=== PATIENT | female | born 1945 | race Caucasian/White ===

== ENCOUNTER 2017-12-02 19:28 | Emergency (ER) | payer OTHER ==
[2017-12-02 19:58] LABS: ABSOLUTE NEUTROPHILS 7.2 thou/uL (1.4-8.2); BASOPHILS 0.7 % (0.0-2.0); EOSINOPHILS 0.2 % (0.0-3.0); HEMOGLOBIN 13.3 gm/dL (12.0-15.0); MCH 31.3 pg (26.0-34.0); MCV 92.1 fL (80.0-100.0); MONOCYTES 8.4 % (1.0-8.0); PLATELET COUNT 196 thou/uL (150-400); POLYS 79.7 % (36.0-66.0); RBC 4.23 mil/uL (4.20-5.00); RDW 13.3 % (10.5-14.5)
[2017-12-02 20:05] LABS: CALCIUM 9.2 mg/dL (8.5-10.1); CREATININE 0.9 mg/dL (0.6-1.0); POTASSIUM 3.8 mmol/L (3.5-5.1)
[2017-12-02 20:11] LABS: ALBUMIN 3.6 g/dL (3.4-5.0); DIRECT BILIRUBIN 0.1 mg/dL (<0.1-0.3); TOTAL BILIRUBIN 0.4 mg/dL (<0.1-1.0); TOTAL PROTEIN 7.3 g/dL (6.4-8.2)
[2017-12-02] MEDS ORDERED: TESSALON PERLE100 MG PO (20:51)
[2017-12-02 21:31] VITALS: BP 146/89
== END 2017-12-02 21:35 | disposition home or self-care (01) ==
LOC: ER 19:28
PROVIDERS: Nurse Practitioner
DX: J06.9 Acute upper respiratory infection, unspecified (principal); Z88.2 Allergy status to sulfonamides

== ENCOUNTER 2018-03-04 14:47 | Emergency (ER) | payer OTHER ==
[~2018-03-04] VITALS: Ht 165.1 cm; Wt 49.9 kg
--- NOTE | ~2018-03-04 | EKG ---
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
[~2018-03-04 14:47] MED LIST: TESSALON PERLE100 MG PO
[2018-03-04 15:54] LABS: ABSOLUTE NEUTROPHILS 3.3 thou/uL (1.4-8.2); BASOPHILS 1.2 % (0.0-2.0); EOSINOPHILS 0.8 % (0.0-3.0); HEMATOCRIT 36.3 % (37.0-47.0); HEMOGLOBIN 12.5 gm/dL (12.0-15.0); LYMPHOCYTES 24.7 % (24.0-44.0); MCH 31.8 pg (26.0-34.0); MCHC 34.3 g/dL (28.0-37.0); MCV 92.7 fL (80.0-100.0); MONOCYTES 8.3 % (1.0-8.0); PLATELET COUNT 223 thou/uL (150-400); RBC 3.92 mil/uL (4.20-5.00); RDW 13.6 % (10.5-14.5); WBC 5.1 thou/uL (4.0-11.0)
[2018-03-04 16:10] LABS: ANION GAP 6 mmol/L (7-16); BUN 21 mg/dL (7-18); CALCIUM 9.4 mg/dL (8.5-10.1); CHLORIDE 96 mmol/L (98-107); CO2 28 mmol/L (21-32); CREATININE 1.1 mg/dL (0.6-1.0); GLUCOSE 97 mg/dL (74-106); POTASSIUM 4.3 mmol/L (3.5-5.1); SODIUM 130 mmol/L (136-145)
[2018-03-04 16:13] LABS: TROPONIN-I <0.06 ng/mL (<0.06)
[2018-03-04] MEDS ORDERED: LISINOPRIL5 MG PO (16:42)
[2018-03-04 16:51] VITALS: BP 146/86
== END 2018-03-04 17:01 | disposition home or self-care (01) ==
LOC: ER 14:47
PROVIDERS: Emergency Medicine
DX: R42 Dizziness and giddiness (principal); R53.1 Weakness; R25.1 Tremor, unspecified; Z88.2 Allergy status to sulfonamides

== ENCOUNTER 2018-11-14 17:58 | Emergency (ER) | payer OTHER ==
[~2018-11-14] VITALS: Ht 162.6 cm; Wt 45.4 kg
[~2018-11-14 17:58] MED LIST changes: +LISINOPRIL5 MG PO
[2018-11-14] MEDS ORDERED: LISINOPRIL10 MG PO (19:15)
[2018-11-14 19:49] VITALS: BP 159/103
== END 2018-11-14 19:48 | disposition home or self-care (01) ==
LOC: ER 17:58
DX: I10 Essential (primary) hypertension (principal); Z76.0 Encounter for issue of repeat prescription; Z88.2 Allergy status to sulfonamides

== ENCOUNTER 2019-01-29 11:39 | Emergency (ER) | payer OTHER ==
[~2019-01-29] VITALS: Ht 167.6 cm; Wt 49.9 kg
[~2019-01-29 11:39] MED LIST changes: +LISINOPRIL10 MG PO
[2019-01-29] MEDS ORDERED: WELLBUTRIN XL300 MG PO (11:51)
[2019-01-29 12:41] LABS: BASOPHILS 1.2 % (0.0-2.0); EOSINOPHILS 1.8 % (0.0-3.0); HEMATOCRIT 39.3 % (37.0-47.0); HEMOGLOBIN 13.5 gm/dL (12.0-15.0); LYMPHOCYTES 12.4 % (24.0-44.0); MCHC 34.4 g/dL (28.0-37.0); MCV 92.9 fL (80.0-100.0); MONOCYTES 7.7 % (1.0-8.0); PLATELET COUNT 190 thou/uL (150-400); POLYS 76.9 % (36.0-66.0); RBC 4.22 mil/uL (4.20-5.00); RDW 13.5 % (10.5-14.5); WBC 5.3 thou/uL (4.0-11.0)
[2019-01-29 12:59] LABS: URINE BILIRUBIN NEGATIVE (Negative); URINE BLOOD NEGATIVE (Negative); URINE CLARITY CLEAR; URINE COLOR YELLOW; URINE GLUCOSE-RANDOM* NEGATIVE (Negative); URINE KETONES NEGATIVE (Negative); URINE LEUKOCYTES-REFLEX NEGATIVE (Negative); URINE NITRITE-REFLEX NEGATIVE (Negative); URINE PROTEIN (DIPSTICK) NEGATIVE (Negative); URINE SPECIFIC GRAVITY 1.015 (1.005-1.035); URINE UROBILINOGEN 0.2 E.U./dl (0.2-1.0)
[2019-01-29 13:01] LABS: CALCIUM 9.2 mg/dL (8.5-10.1); CREATININE 0.9 mg/dL (0.6-1.0)
[2019-01-29 13:06] LABS: AMP/METHAMP Negative (Negative); BARBITURATES Negative (Negative); BENZODIAZEPINES POSITIVE (Negative); COCAINE Negative (Negative); METHADONE Negative (Negative); OPIATES Negative (Negative); PCP Negative (Negative)
[2019-01-29 13:09] LABS: ALBUMIN 3.6 g/dL (3.4-5.0); DIRECT BILIRUBIN 0.1 mg/dL (<0.1-0.3); TOTAL BILIRUBIN 0.5 mg/dL (<0.1-1.0); TOTAL PROTEIN 6.6 g/dL (6.4-8.2)
[2019-01-29 13:16] LABS: POTASSIUM 3.9 mmol/L (3.5-5.1)
[2019-01-29] MEDS ORDERED: IBUPROFEN 600600 M1 PO (14:02)
[2019-01-29] MEDS ORDERED: LISINOPRIL10 MG PO (14:02)
[2019-01-29 14:21] VITALS: BP 141/81
== END 2019-01-29 14:27 | disposition home or self-care (01) ==
LOC: ER 11:39
PROVIDERS: Emergency Medicine
DX: S01.01XA Laceration without foreign body of scalp, initial encounter (principal); I10 Essential (primary) hypertension; Z88.2 Allergy status to sulfonamides; W07.XXXA Fall from chair, initial encounter; Y93.89 Activity, other specified; Y92.89 Other specified places as the place of occurrence of the external cause; Y99.8 Other external cause status; Z79.899 Other long term (current) drug therapy

== ENCOUNTER 2019-02-15 14:31 | Emergency (ER) | payer OTHER ==
[~2019-02-15] VITALS: Ht 165.1 cm; Wt 47.6 kg
[~2019-02-15 14:31] MED LIST changes: +IBUPROFEN 600600 M1 PO; +WELLBUTRIN XL300 MG PO
[2019-02-15 14:36] VITALS: BP 130/88
== END 2019-02-15 15:52 | disposition home or self-care (01) ==
LOC: ER 14:31
DX: S01.81XD Laceration without foreign body of other part of head, subsequent encounter (principal); I10 Essential (primary) hypertension; Z88.2 Allergy status to sulfonamides; W07.XXXD Fall from chair, subsequent encounter

== ENCOUNTER 2019-04-08 21:45 | Inpatient (IN) | payer OTHER ==
[~2019-04-08] VITALS: Ht 165.1 cm; Wt 49.9 kg
[2019-04-08 21:48] VITALS: BP 169/100
[2019-04-09 00:01] LABS: ABSOLUTE NEUTROPHILS 7.9 thou/uL (1.4-8.2); BASOPHILS 0.3 % (0.0-2.0); EOSINOPHILS 0.1 % (0.0-3.0); HEMATOCRIT 37.7 % (37.0-47.0); HEMOGLOBIN 12.9 gm/dL (12.0-15.0); LYMPHOCYTES 3.7 % (24.0-44.0); MCH 31.5 pg (26.0-34.0); MCHC 34.1 g/dL (28.0-37.0); MCV 92.4 fL (80.0-100.0); PLATELET COUNT 171 thou/uL (150-400); POLYS 94.9 % (36.0-66.0); RBC 4.08 mil/uL (4.20-5.00); RDW 13.2 % (10.5-14.5); WBC 8.3 thou/uL (4.0-11.0)
[2019-04-09 00:06] LABS: ANION GAP 8 mmol/L (7-16); BUN 23 mg/dL (7-18); CALCIUM 8.8 mg/dL (8.5-10.1); CHLORIDE 95 mmol/L (98-107); CO2 27 mmol/L (21-32); GLUCOSE 142 mg/dL (74-106); POTASSIUM 4.1 mmol/L (3.5-5.1); SODIUM 130 mmol/L (136-145)
[2019-04-09 00:27] LABS: MAGNESIUM 1.8 mg/dL (1.8-2.4); TROPONIN-I <0.06 ng/mL (<0.06)
[2019-04-09 01:01] LABS: URINE BILIRUBIN NEGATIVE (Negative); URINE BLOOD NEGATIVE (Negative); URINE CLARITY CLEAR; URINE COLOR YELLOW; URINE GLUCOSE-RANDOM* NEGATIVE (Negative); URINE KETONES NEGATIVE (Negative); URINE LEUKOCYTES-REFLEX NEGATIVE (Negative); URINE NITRITE-REFLEX NEGATIVE (Negative); URINE PROTEIN (DIPSTICK) NEGATIVE (Negative); URINE UROBILINOGEN 0.2 E.U./dl (0.2-1.0)
[2019-04-09] MEDS ORDERED: VALIUM5 MG PO (01:24)
[2019-04-09 08:23] VITALS: BP 110/65
[2019-04-09 08:27] LABS: CALCIUM 8.4 mg/dL (8.5-10.1); CREATININE 0.9 mg/dL (0.6-1.0); POTASSIUM 4.2 mmol/L (3.5-5.1)
[2019-04-09 08:38] VITALS: BP 115/67
[2019-04-09 08:53] VITALS: BP 106/54
--- NOTE | 2019-04-09 10:57 | EKG ---
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
--- NOTE | 2019-04-09 10:58 | EKG ---
[place] [address] 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1945 Requested By: Ovidio Noe Order Number: [id number] MD: Atul Hale Measurements Intervals [place] Rate: 99 P: 76 NE: 172 QRS: 87 QRSD: 101 T: -2 QT: 364 QTc: 468 Interpretive Statements Sinus rhythm Biatrial enlargement Borderline right axis deviation Borderline T wave abnormalities Baseline wander in lead(s) V6 Compared to ECG 03/04/2018 15:15:48 Atrial abnormality now present T-wave abnormality now present Electronically Signed On 04-09-2019 10:57:47 CDT by Atul Hale [email or web address] <ELECTRONICALLY SIGNED> By: Atul Hale MD 04/09/19 1057 0035 0035 Atul Hale MD /[facility]
[2019-04-09 11:30] LABS: TSH 1.062 uIU/mL (0.358-3.740)
[2019-04-09 12:17] VITALS: BP 108/61
[2019-04-09 15:08] VITALS: BP 101/64
--- NOTE | 2019-04-09 19:07 | NUR ---
PATIENT ADMITTED TO ROOM THIS AM. SHE IS PLEASANT BUT QUITE FORGETFUL. SHE KEEPS ASKING THE SAME QUESTION OVER AND OVER. SHE IS ORIENTED TO DAY AND TIME. WILL CONT WITH PLAN OF CARE.
[2019-04-09 20:05] VITALS: BP 107/64
[2019-04-10 06:17] VITALS: BP 112/75
--- NOTE | 2019-04-10 06:17 | NUR ---
calls approp for assist out of bed. c/o headache this am. tylenol allowed her to rest. careplan reviewed. she is wanting to go home today. stated that she is feeling just fine. continues on iv fluids. no discharge concerns voiced.
[2019-04-10 07:09] VITALS: BP 113/66
[2019-04-10 10:06] LABS: HEMATOCRIT 35.9 % (37.0-47.0); HEMOGLOBIN 12.1 gm/dL (12.0-15.0); MCH 31.4 pg (26.0-34.0); MCHC 33.6 g/dL (28.0-37.0); MCV 93.3 fL (80.0-100.0); RBC 3.84 mil/uL (4.20-5.00); RDW 13.6 % (10.5-14.5)
--- NOTE | 2019-04-10 10:07 | NUR ---
PT PULLED OUT IV AT SHIFT CHANGE.PHYSICIAN GAVE ORDER FOR OK TO D/C FLUIDS AND TO RESTART AN IV AND SALINE LOCK IT. PT REFUSED NEW IV.
[2019-04-10 10:17] LABS: CREATININE 0.9 mg/dL (0.6-1.0); MAGNESIUM 1.8 mg/dL (1.8-2.4)
--- NOTE | 2019-04-10 12:06 | NUR ---
PT APPEARS TO HAVE SHORT TERM MEMORY PROBLEMS. NOTIFIED NEUROLOGIST ABOUT PT REPEATING THE SAME CONVERSATIONS. PT VERY UPSET ABOUT BEING IN HOSPITAL AND NOT BEING D/C HOME TODAY. ONCE RN STATES THAT AN MRI IS TO BE DONE TOMORROW,PT QUESTIONS WHY SHE CAN'T GO HOME TODAY AND COME BACK TOMORROW. A FEW MINUTES LATER PT CALLS NURSE BACK INTO ROOM AND HAS SAME CONVERSATION IF WE DID NOT JUST SPEAK OF THIS. MICHELLE CONTINUE TO CLOSELY MONITOR PT.
[2019-04-10 15:01] VITALS: BP 128/66
[2019-04-10 20:30] VITALS: BP 119/75
--- NOTE | 2019-04-11 03:40 | NUR ---
pt has rested well tonight. frequent turns and oral care completed. denies pain. careplan reviewed. progresslng slowly toward discharge goals. he has had one large bm this shift.
[2019-04-11 04:45] VITALS: BP 125/69
[2019-04-11 05:48] LABS: HEMATOCRIT 39.3 % (37.0-47.0); HEMOGLOBIN 13.1 gm/dL (12.0-15.0); MCH 31.1 pg (26.0-34.0); MCHC 33.2 g/dL (28.0-37.0); MCV 93.6 fL (80.0-100.0); RBC 4.2 mil/uL (4.20-5.00); RDW 13.4 % (10.5-14.5); WBC 5.8 thou/uL (4.0-11.0)
[2019-04-11 05:59] LABS: CALCIUM 9.1 mg/dL (8.5-10.1); CREATININE 0.8 mg/dL (0.6-1.0); MAGNESIUM 1.9 mg/dL (1.8-2.4)
--- NOTE | 2019-04-11 06:48 | NUR ---
continues to be confused and asking the same question with each interaction. she is genuinely surprised, with the reason for her admission to the hospital. she wants to go home. reassured her and explained the plan for today many times. she can be redirected easily. progressing toward discharge goals.
[2019-04-11 07:27] VITALS: BP 119/75
--- NOTE | 2019-04-11 10:14 | NUR ---
ASSESSMENT: CM REVIEWED CHART AND MET WITH PATIENT AT THE BEDSIDE. PT REPORTS THAT SHE LIVES IN A [place] ALONE. PT WAS ADMITTED FOR SEIZURE/WEAKNESS. PT REPORTS THAT SHE HAS ABOUT 7 STEPS WITH HANDRAILS TO ENTER THE [place] AND HAS ABOUT 15 STEPS WITH [facility]ANDR[facility]S TO HER BEDROOM. PT REPORTS BEING FULLY INDEPENDENT WITH ADLS AND AMBULATION. PT REPORTS SHE HAS NOT HAD HH IN THE PAST OR BEEN TO A SNF. PT IS VERY ADMIATE ABOUT GOING HOME. PTS GALDINO SANTANA IS VERY CONCERNED ABOUT HER GOING HOME DUE TO HER CONFUSION AT TIMES. SHE STATES SHE HAS FRIENDS THAT LIVE AT THE [place] THAT CHECK IN ON HER BUT SHE IS CONCERNED ABOUT HER BEING ALONE. PT STATING SHE IS FINE AND WANTS TO GO HOME. PSYCH HAS BEEN CONSULTED AND WAITING ON THEIR OPINION FOR PATIENTS CAPACITY TO MAKE HER OWN DECISONS AT THIS TIME. CM DISCUSSED THIS WHAT THE NIECE. CM WILL CONTINUE TO FOLLOW TO ASSIST NEEDED.
--- NOTE | 2019-04-11 13:41 | NUR ---
Nutrition: Pt assessed d/t high risk, BMI < 18.5 (18.3 at present). Here for new onset seizure, hypokalemia, weakness. Hx HTN. On a regular diet, eating 100% of dinners the last 2 nights; but no other meals yet recorded. Discussed underweight status. Pt got defensive and stated "I'm not anorexic if that's what you mean." States UBW of 115-120#, but recent virus a weeks back so possible 5-10# loss? EMR shows pt reported her weight at 110# back in 02/2018, 01/2019, and CBW 110#. EMR states increased confusion over the past year. Pt states she is very busy, always on the go. Discussed easy, energy dense kcals and snacks to carry. Pt very short with RD, stating "I need to talk to the RN, I'm trying to get out of here." Reports appetite is fine, will continue being fine after discharge too. Any nutrition interventions declined. Low risk.
[2019-04-11 16:35] VITALS: BP 119/75
== END 2019-04-11 17:47 | disposition home or self-care (01) | DRG 100 ==
LOC: ER 21:45 → 3W 04-09 02:39 → EROBS 04-09 02:39 → 3W 04-09 08:50
PROVIDERS: Emergency Medicine; Nurse Practitioner Acute Care; Psychiatry & Neurology Neurology; ADMIT Internal Medicine
PROC: 4A00X4Z Measurement of Central Nervous Electrical Activity, External Approach (ICD-10-PCS; principal; 2019-04-09)
DX: R56.9 Unspecified convulsions (principal); G92 Toxic encephalopathy; E87.1 Hypo-osmolality and hyponatremia; F03.90 Unspecified dementia, unspecified severity, without behavioral disturbance, psychotic disturbance, mood disturbance, and anxiety; F32.9 Major depressive disorder, single episode, unspecified; I10 Essential (primary) hypertension; Z85.3 Personal history of malignant neoplasm of breast; Z90.12 Acquired absence of left breast and nipple; Z88.2 Allergy status to sulfonamides; Z82.0 Family history of epilepsy and other diseases of the nervous system
CPT/HCPCS: 10879

== ENCOUNTER 2019-04-30 17:28 | Emergency (ER) | payer OTHER ==
[~2019-04-30] VITALS: Ht 165.1 cm; Wt 49.9 kg
[~2019-04-30 17:28] MED LIST changes: +VALIUM5 MG PO
[2019-04-30 19:02] VITALS: BP 154/92
== END 2019-04-30 19:02 | disposition home or self-care (01) ==
LOC: ER 17:28
DX: S01.81XA Laceration without foreign body of other part of head, initial encounter (principal); I10 Essential (primary) hypertension; Z85.3 Personal history of malignant neoplasm of breast; Z90.12 Acquired absence of left breast and nipple; Z98.890 Other specified postprocedural states; Z88.2 Allergy status to sulfonamides; W18.39XA Other fall on same level, initial encounter; Y93.89 Activity, other specified; Y92.481 Parking lot as the place of occurrence of the external cause; Y99.8 Other external cause status

== ENCOUNTER → 2021-02-13 | Outpatient (CLI) | payer OTHER ==
[~2021-02-13] MED LIST changes: +GENTAMICIN TOP; +NEURONTIN100 MG PO; +ROXICODONE5 M2 PO; +VALIUM10 MG PO
== END ==
LOC: HYPER 08:03
PROVIDERS: ATTEND Emergency Medicine
DX: S91.032D Puncture wound without foreign body, left ankle, subsequent encounter (principal); L97.322 Non-pressure chronic ulcer of left ankle with fat layer exposed; L84 Corns and callosities; G62.9 Polyneuropathy, unspecified; M21.612 Bunion of left foot; I10 Essential (primary) hypertension; M19.071 Primary osteoarthritis, right ankle and foot; M19.072 Primary osteoarthritis, left ankle and foot; Z90.10 Acquired absence of unspecified breast and nipple; Z79.899 Other long term (current) drug therapy; X58.XXXD Exposure to other specified factors, subsequent encounter

== ENCOUNTER → 2021-02-20 | Outpatient (CLI) | payer OTHER | LOC: HYPER 09:24 | PROVIDERS: ATTEND Emergency Medicine | DX: S91.032D Puncture wound without foreign body, left ankle, subsequent encounter (principal); L97.322 Non-pressure chronic ulcer of left ankle with fat layer exposed; L84 Corns and callosities; G62.9 Polyneuropathy, unspecified; M21.612 Bunion of left foot; I10 Essential (primary) hypertension; M19.071 Primary osteoarthritis, right ankle and foot; M19.072 Primary osteoarthritis, left ankle and foot; Z90.10 Acquired absence of unspecified breast and nipple; X58.XXXD Exposure to other specified factors, subsequent encounter ==

== ENCOUNTER → 2021-02-28 | Outpatient (CLI) | payer OTHER | LOC: HYPER 09:41 | PROVIDERS: ATTEND Emergency Medicine | DX: S91.032D Puncture wound without foreign body, left ankle, subsequent encounter (principal); L97.322 Non-pressure chronic ulcer of left ankle with fat layer exposed; G62.9 Polyneuropathy, unspecified; M21.612 Bunion of left foot; I10 Essential (primary) hypertension; M19.071 Primary osteoarthritis, right ankle and foot; M19.072 Primary osteoarthritis, left ankle and foot; Z90.10 Acquired absence of unspecified breast and nipple; Z79.899 Other long term (current) drug therapy; X58.XXXD Exposure to other specified factors, subsequent encounter ==

== ENCOUNTER → 2021-03-21 | Outpatient (CLI) | payer OTHER | LOC: HYPER 08:25 | PROVIDERS: ATTEND Emergency Medicine | DX: S91.032D Puncture wound without foreign body, left ankle, subsequent encounter (principal); L97.322 Non-pressure chronic ulcer of left ankle with fat layer exposed; M21.612 Bunion of left foot; G62.9 Polyneuropathy, unspecified; I10 Essential (primary) hypertension; M19.071 Primary osteoarthritis, right ankle and foot; M19.072 Primary osteoarthritis, left ankle and foot; Z90.10 Acquired absence of unspecified breast and nipple; Z79.899 Other long term (current) drug therapy; X58.XXXD Exposure to other specified factors, subsequent encounter ==

== ENCOUNTER → 2021-04-04 | Outpatient (CLI) | payer OTHER | LOC: HYPER 08:04 | PROVIDERS: ATTEND Emergency Medicine | DX: S91.032D Puncture wound without foreign body, left ankle, subsequent encounter (principal); L97.322 Non-pressure chronic ulcer of left ankle with fat layer exposed; G62.9 Polyneuropathy, unspecified; M21.612 Bunion of left foot; I10 Essential (primary) hypertension; M19.071 Primary osteoarthritis, right ankle and foot; M19.072 Primary osteoarthritis, left ankle and foot; Z90.10 Acquired absence of unspecified breast and nipple; Z79.899 Other long term (current) drug therapy; X58.XXXD Exposure to other specified factors, subsequent encounter ==

== ENCOUNTER → 2021-04-11 | Outpatient (CLI) | payer OTHER | LOC: HYPER 08:29 | PROVIDERS: ATTEND Emergency Medicine | DX: S91.032D Puncture wound without foreign body, left ankle, subsequent encounter (principal); L97.322 Non-pressure chronic ulcer of left ankle with fat layer exposed; L84 Corns and callosities; G62.9 Polyneuropathy, unspecified; M21.612 Bunion of left foot; I10 Essential (primary) hypertension; M19.071 Primary osteoarthritis, right ankle and foot; M19.072 Primary osteoarthritis, left ankle and foot; Z90.10 Acquired absence of unspecified breast and nipple; X58.XXXD Exposure to other specified factors, subsequent encounter ==

== ENCOUNTER → 2021-05-02 | Outpatient (CLI) | payer OTHER | LOC: HYPER 09:49 | PROVIDERS: ATTEND Emergency Medicine | DX: S91.032A Puncture wound without foreign body, left ankle, initial encounter (principal); L97.322 Non-pressure chronic ulcer of left ankle with fat layer exposed; L84 Corns and callosities; G62.9 Polyneuropathy, unspecified; M21.612 Bunion of left foot; I10 Essential (primary) hypertension; M19.072 Primary osteoarthritis, left ankle and foot; M19.071 Primary osteoarthritis, right ankle and foot; X58.XXXA Exposure to other specified factors, initial encounter; Y93.89 Activity, other specified; Y92.89 Other specified places as the place of occurrence of the external cause; Y99.8 Other external cause status ==

== ENCOUNTER → 2021-05-15 | Outpatient (CLI) | payer OTHER | LOC: HYPER 08:44 | PROVIDERS: ATTEND Emergency Medicine | DX: S91.032D Puncture wound without foreign body, left ankle, subsequent encounter (principal); L97.322 Non-pressure chronic ulcer of left ankle with fat layer exposed; L84 Corns and callosities; G62.9 Polyneuropathy, unspecified; M21.612 Bunion of left foot; I10 Essential (primary) hypertension; M19.072 Primary osteoarthritis, left ankle and foot; M19.071 Primary osteoarthritis, right ankle and foot; X58.XXXD Exposure to other specified factors, subsequent encounter ==

== ENCOUNTER → 2021-06-06 | Outpatient (CLI) | payer OTHER | LOC: HYPER 10:46 | PROVIDERS: ATTEND Emergency Medicine | DX: S91.032D Puncture wound without foreign body, left ankle, subsequent encounter (principal); L97.322 Non-pressure chronic ulcer of left ankle with fat layer exposed; L84 Corns and callosities; G62.9 Polyneuropathy, unspecified; M21.612 Bunion of left foot; I10 Essential (primary) hypertension; M19.072 Primary osteoarthritis, left ankle and foot; M19.071 Primary osteoarthritis, right ankle and foot; X58.XXXD Exposure to other specified factors, subsequent encounter ==

== ENCOUNTER → 2021-07-02 | Outpatient (CLI) | payer OTHER | LOC: HYPER 13:10 | PROVIDERS: ATTEND Emergency Medicine | DX: S91.032D Puncture wound without foreign body, left ankle, subsequent encounter (principal); L97.322 Non-pressure chronic ulcer of left ankle with fat layer exposed; L84 Corns and callosities; G62.9 Polyneuropathy, unspecified; M21.612 Bunion of left foot; I10 Essential (primary) hypertension; M19.072 Primary osteoarthritis, left ankle and foot; M19.071 Primary osteoarthritis, right ankle and foot; X58.XXXD Exposure to other specified factors, subsequent encounter ==

== ENCOUNTER → 2021-08-26 | Outpatient (CLI) | payer OTHER | LOC: HYPER 09:57 | PROVIDERS: ATTEND Emergency Medicine | DX: L97.322 Non-pressure chronic ulcer of left ankle with fat layer exposed (principal); L84 Corns and callosities; G62.9 Polyneuropathy, unspecified; L95.9 Vasculitis limited to the skin, unspecified; I10 Essential (primary) hypertension; M21.612 Bunion of left foot; M19.072 Primary osteoarthritis, left ankle and foot; M19.071 Primary osteoarthritis, right ankle and foot ==

== ENCOUNTER → 2021-09-02 | Outpatient (CLI) | payer OTHER | LOC: HYPER 08:36 | PROVIDERS: ATTEND Emergency Medicine | DX: L97.322 Non-pressure chronic ulcer of left ankle with fat layer exposed (principal); L95.9 Vasculitis limited to the skin, unspecified; G62.9 Polyneuropathy, unspecified; M21.612 Bunion of left foot; I10 Essential (primary) hypertension; M19.071 Primary osteoarthritis, right ankle and foot; M19.072 Primary osteoarthritis, left ankle and foot; Z90.10 Acquired absence of unspecified breast and nipple; Z79.899 Other long term (current) drug therapy ==

== ENCOUNTER → 2021-09-16 | Outpatient (CLI) | payer OTHER | LOC: HYPER 10:11 | PROVIDERS: ATTEND Emergency Medicine | DX: L97.322 Non-pressure chronic ulcer of left ankle with fat layer exposed (principal); L95.9 Vasculitis limited to the skin, unspecified; G62.9 Polyneuropathy, unspecified; M21.612 Bunion of left foot; I10 Essential (primary) hypertension; M19.071 Primary osteoarthritis, right ankle and foot; M19.072 Primary osteoarthritis, left ankle and foot; Z90.10 Acquired absence of unspecified breast and nipple; Z79.899 Other long term (current) drug therapy ==